=== PATIENT | male | born 2000 | race Hispanic/Latino ===

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

== ENCOUNTER 2023-03-02 04:20 | Emergency (ER) | payer OTHER ==
[~2023-03-02] VITALS: Ht 167.6 cm; Wt 71.7 kg
[2023-03-02] MEDS ORDERED: DIPH,PERTUSS(ACELL),TET VAC/PF 0.5 ML VIAL IM ONE (05:00)
[2023-03-02 05:19] LABS: BASOPHILS % (AUTO) 0.3 % (0.0-5.0); EOSINOPHILS % (AUTO) 1.2 % (0.0-8.0); HEMATOCRIT 45.7 % (42-54); LYMPHOCYTES % (AUTO) 17.8 % (21.0-51.0); MEAN CORPUSCULAR HEMOGLOBIN 28.1 pg (27.0-33.0); MEAN CORPUSCULAR HGB CONC 32.4 g/dL (32.0-36.0); MEAN CORPUSCULAR VOLUME 86.9 fL (79-99); MONOCYTES % (AUTO) 5.9 % (3.0-13.0); PLATELET COUNT (AUTO) 267 K/uL (130-400); RED BLOOD CELL COUNT(AUTO) 5.26 MIL/uL (4.50-6.20); RED CELL DISTRIBUTION WIDTH 12.9 % (11.0-15.5); WHITE BLOOD COUNT (AUTO) 9.7 K/uL (4.8-10.8)
[2023-03-02 05:20] LABS: POTASSIUM 3.7 mmol/L (3.5-5.1)
[2023-03-02 05:24] LABS: ALBUMIN 3.9 g/dL (3.5-5.0); TOTAL PROTEIN, SERUM 6.7 g/dL (6.0-8.3)
[2023-03-02 05:26] LABS: INR 0.93 (0.85-1.15); PROTHROMBIN TIME 9.4 SEC (9.6-11.6)
[2023-03-02 05:27] LABS: PARTIAL THROMBOPLASTIN TIME 22.3 SEC (26.3-35.5)
[2023-03-02 05:32] LABS: APPEARANCE,URINE CLEAR (CLEAR); BILIRUBIN,URINE NEGATIVE (NEGATIVE); COLOR,URINE YELLOW (YELLOW); GLUCOSE, URINE (UA) NEGATIVE (NEGATIVE); KETONES,URINE 5 mg/dL (NEGATIVE); LEUKOCYTE ESTERASE ,URINE NEGATIVE Leu/uL (NEGATIVE); NITRATE,URINE NEGATIVE (NEGATIVE); OCCULT BLOOD,URINE NEGATIVE (NEGATIVE); PROTEIN,URINE NEGATIVE (NEGATIVE); UROBILINOGEN,URINE 0.2 mg/dL (0.2-1.0)
[2023-03-02 05:46] LABS: BACTERIA,URINE None Seen /HPF (None Seen); RBC,URINE None Seen /HPF (0-1); SQUAMOUS EPITHELIAL CELL,UR Few /HPF (0-2); WBC,URINE 0-1 /HPF (0-1)
[2023-03-02 05:49] VITALS: BP 131/64
[2023-03-02] MEDS ORDERED: CEFAZOLIN SODIUM 2 GM VIAL IVPB STA (05:55)
[2023-03-02] MEDS ORDERED: IBUPROFEN 400 MG TABLET PO ONE (06:00)
[2023-03-02] MEDS ORDERED: IBUPROFEN 800 MG TAB PO ONE (06:00)
== END 2023-03-02 08:15 | disposition critical access hospital (66) ==
LOC: EDH 04:20
DX: S02.32XA Fracture of orbital floor, left side, initial encounter for closed fracture (principal); S00.11XA Contusion of right eyelid and periocular area, initial encounter; Z20.822 Contact with and (suspected) exposure to COVID-19; W13.9XXA Fall from, out of or through building, not otherwise specified, initial encounter; Y93.89 Activity, other specified; Y92.89 Other specified places as the place of occurrence of the external cause; Y99.8 Other external cause status
CPT/HCPCS: 99285; 70450; 96365; 71045; 87635; 80053; 85025; 85610; 85730; 81001; 36415; 90715; 72125; 70486; 90471; J0690

== ENCOUNTER 2023-08-24 16:51 | Emergency (ER) | payer OTHER ==
[~2023-08-24] VITALS: Ht 162.6 cm; Wt 72.6 kg
[2023-08-24 16:55] VITALS: BP 138/77; PULSE 75; RESP 16; O2SAT 97
[2023-08-24] MEDS ORDERED: 0.9%NACL 1000ML 1,000 ML IV ONE (20:00)
[2023-08-24] MEDS ORDERED: CEFAZOLIN SODIUM 2 GM VIAL IVPB ONE (20:00)
[2023-08-24] MEDS ORDERED: KETOROLAC 30MG VIAL (30MG/ML) IM ONE (20:00)
[2023-08-24 20:34] LABS: BASOPHILS # (AUTO) 0.03 K/uL (0.00-0.20); BASOPHILS % (AUTO) 0.3 % (0.0-5.0); EOSINOPHILS # (AUTO) 0.17 K/uL (0.00-0.70); EOSINOPHILS % (AUTO) 1.9 % (0.0-8.0); HEMATOCRIT 45.6 % (42-54); IMMATURE GRANULOCYTE ABSOLUTE 0.02 K/uL (0-1); LYMPHOCYTES # (AUTO) 1.7 K/uL (1.0-4.8); LYMPHOCYTES % (AUTO) 18.7 % (21.0-51.0); MEAN CORPUSCULAR HEMOGLOBIN 28.8 pg (27.0-33.0); MEAN CORPUSCULAR HGB CONC 33.3 g/dL (32.0-36.0); MEAN CORPUSCULAR VOLUME 86.4 fL (79-99); MONOCYTES # (AUTO) 0.8 K/uL (0.1-1.0); MONOCYTES % (AUTO) 8.9 % (3.0-13.0); NEUTROPHILS # (AUTO) 6.4 K/uL (1.8-7.7); PLATELET COUNT (AUTO) 277 K/uL (130-400); RED BLOOD CELL COUNT(AUTO) 5.28 MIL/uL (4.50-6.20); RED CELL DISTRIBUTION WIDTH 12.7 % (11.0-15.5); WHITE BLOOD COUNT (AUTO) 9.2 K/uL (4.8-10.8)
[2023-08-24 20:43] LABS: CREATININE 0.9 mg/dL (0.5-1.5); POTASSIUM 3.8 mmol/L (3.5-5.1)
[2023-08-24 21:39] LABS: ERYTHROCYTE SEDIMENTATION RATE 5 MM/HR (0-15)
[2023-08-24] MEDS ORDERED: MUPI15CR12 TP (22:44)
[2023-08-24] MEDS ORDERED: CEPH500T PO (22:44)
[2023-08-24] MEDS ORDERED: IBUP-2070 PO (22:45)
== END 2023-08-24 23:12 | disposition home or self-care (01) ==
LOC: EDH 16:51
DX: S50.312A Abrasion of left elbow, initial encounter (principal); L03.114 Cellulitis of left upper limb; W01.0XXA Fall on same level from slipping, tripping and stumbling without subsequent striking against object, initial encounter; Y93.89 Activity, other specified; Y92.89 Other specified places as the place of occurrence of the external cause; Y99.8 Other external cause status
CPT/HCPCS: 99285; 96374; 73200; 73070; 80048; 85025; 85651; 36415; 96372; J1885; J0690

== ENCOUNTER 2025-02-07 22:31 | Emergency (ER) | payer SELFPAY ==
[~2025-02-07] VITALS: Ht 160 cm; Wt 77.1 kg
[~2025-02-07 22:31] MED LIST: CEPH500T PO; IBUP-2070 PO; MUPI15CR12 TP
--- NOTE | 2025-02-08 00:17 | HMCIMG ---
ANKLE COMP 3VWS LT HISTORY: Fracture COMPARISON: None TECHNIQUE: 3 images of the left ankle were obtained. FINDINGS: There is no acute displaced fracture or dislocation. IMPRESSION: 1. Findings as described above.
[2025-02-08 00:38] VITALS: BP 128/82; PULSE 104; RESP 18; TEMP 98; O2SAT 98
--- NOTE | 2025-02-08 00:38 | NUR ---
PATIENT BROUGHT TO [facility]; CARE ASSUMED AT THIS TIME.
[2025-02-08] MEDS: HYDROcodone/APAP 5/325 1 TAB TABLET PO ONE (00:43)
[2025-02-08] MEDS ORDERED: KETO10TA2 PO (01:18)
--- NOTE | 2025-02-08 01:19 | ERN ---
General Chief Complaint: Ankle Problem Stated Complaint: C/O PAIN TO LEFT ANKLE Time Seen by MD: 22:37 Time Seen by Midlevel: 22:37 Source: patient History of Present Illness Initial Comments Patient is a 24-year-old male presenting to the ER for evaluation of left ankle pain after he rolled it while playing volleyball. Denies any other injuries Allergies: Coded Allergies: No Known Allergies (Unverified Allergy, Unknown, 03/02/23) Home Meds Active Scripts Ibuprofen (Ibuprofen) 600 Mg Tablet, 600 MG PO q8 hours PRN for PAIN, #15 TAB 0 Refills Prov:NACHO BURDICK NP 08/24/23 Mupirocin Calcium (Mupirocin) 2 % Cream..g., 15 GM TP BID, #30 G 0 Refills Prov:NACHO BURDICK NP 08/24/23 Cephalexin (Cephalexin) 500 Mg Tablet, 500 MG PO TID for 7 Days, #21 TAB 0 Refills Prov:NACHO BURDICK NP 08/24/23 Past Medical History Past Medical History: No Pertinent History Past Surgical History: None Family History Family History: HTN Social History Social History: ETOH, Lives with family ROS Dictation CONSTITUTIONAL: Negative except for HPI HEAD/FACE: Negative except for HPI EENT: Negative except for HPI RESPIRATORY: Negative except for HPI GASTROINTESTINAL/ABDOMINAL: Negative except for HPI GENITOURINARY: Negative except for HPI MUSCULOSKELETAL: Negative except for HPI INTEGUMENTARY: Negative except for HPI NEUROLOGICAL/PSYCH: Negative except for HPI HEMATOLOGIC/LYMPHATIC: Negative except for HPI All Systems Negative, Except as noted above. 13 point review of systems assessed and all negative except for above. Physical Exam Physical Exam Dictation Vital Signs reviewed General Appearance: Alert, oriented x 3, no acute distress, well developed, nourished. Head and Face: non-traumatic. Eyes: PERRL, pink conjunctivas, eyelid no trauma, anterior chamber with arcus senilis. Ears: Pinnas intact and no signs of trauma or erythema ear canals clear and no discharge TM no erythema Nose: No discharge, no bleeding. Oropharynx: Mouth normal, tongue pink, pharynx clear,no erythema, tonsils no exudates, no abscesses noted, mucous membrane moist Neck: Supple, non-tender, no thyromegaly, no masses, no JVD, no bruits Breast:Deferred Chest:No tenderness, no crepitus, no paradoxical movement, no retractions Lungs:Clear, well-ventilated, symmetric, no rales, no wheezing, no rhonchi, no stridor, good breath sounds bilaterally Heart: Regular rate, regular rhythm, no murmur, no gallops Vascular: no peripheral edema, Abdomen: Soft, positive bowel sounds, nondistended, no guarding, nontender, no rebound, no masses no hepatomegaly, no splenomegaly, no Olivares's sign, no hernias. Rectal: Deferred Genital: Deferred Neurological: Normal speech, motor function intact, sensory function intact Musculoskeletal: Neck nontender, full range of motion, back nontender, full range of motion, Extremities: Swelling and tenderness to the left lateral malleolus Skin: Color pink, dry, no turgor, no rash, no lacerations, no abrasions, no contusions. Lymphatic: Deferred MDM MDM: Differential diagnosis: Fracture, dislocation, contusion There are no social concerns with this patient. Prescription drug management Prescriptions will include: Toradol Medical management and examination interpretation discussions were had by me with other qualified healthcare professionals as indicated for the patient's care. ED Course Orders Procedure Category Date Status Time Ankle Comp 3vws Lt RAD 02/07/25 Resulted 22:39 Foot Comp 3+Vws Lt RAD 02/08/25 Taken 00:23 Hydrocodone/Apap PHA 02/08/25 Complete 5/325 ([place] 5/325mg) 00:30 Apply Mukul Wrap (Er) CPOE 02/08/25 Transmitted 01:02 Crutches W/Training CPOE 02/08/25 Transmitted (Er) 01:02 Current Medications Medications (Trade) Dose Ordered Sig/Sabrina Route PRN Reason Start Time Stop Time Status Last Admin Dose Admin Acetaminophen/ Hydrocodone Bitart (NORco 5/325MG) 1 tab ONCE ONCE PO 02/08/25 00:30 02/08/25 00:31 DC 02/08/25 00:43 Vital Signs Date Time Temp Pulse Resp B/P (MAP) Pulse Ox O2 Delivery O2 Flow Rate FiO2 02/08/25 00:38 98.1 104 18 128/82 98 Room Air* 0 21 02/07/25 22:32 98.1 107 20 137/85 96 Room Air [place] [address] [address] IMAGING REPORT Signed PATIENT: ROMEL ALLEN MR#: [id number] : 2000 SEX: M AGE: 24 LOCATION: [facility] ORDER 39 STATUS: REG ER REPORT#: [id number] SERVICE 38 REASON: r/o fracture ORDERING PHYSICIAN: SOFÍA ALLEN PROCEDURE: [id number] - ANKLE COMP 3VWS LT ANKLE COMP 3VWS LT HISTORY: Fracture COMPARISON: None TECHNIQUE: 3 images of the left ankle were obtained. FINDINGS: There is no acute displaced fracture or dislocation. IMPRESSION: 1. Findings as described above. DICTATED BY: ROSA MARIA DANGELO MD DATE: 02/08/2513 ELECTRONICALLY SIGNED BY: ROSA MARIA DANGELO MD DATE: 02/08/2516 DX & DISP Disposition: Discharge Departure Impression: Primary Impression: Left ankle sprain Condition: Stable Scripts Ketorolac Tromethamine (Ketorolac Tromethamine) 10 Mg Tablet 1 TAB PO TID for pain for 5 Days, #15 TAB 0 Refills Prov: SOFÍA ALLEN 02/08/25 Additional Instructions: Your left foot/ankle x-ray does not show any evidence of an acute fracture or dislocation. I have given you a prescription for Toradol which should help improve your pain over the next couple of days. Referrals: SELF,REFERRAL (PCP) I have reviewed the case, and I agree with, Diagnosis and Plan I performed the substantive portion of the visit. I have reviewed and personally made and approve the management plan that is documented in the note by myself or the GIACOMO. I acknowledge for responsibility for the patient's management plan. SOFÍA ALLEN Feb 08, 2025 01:19
--- NOTE | 2025-02-08 01:21 | NUR ---
ROSALBA WRAP APPLIED TO L ANKLE/FOOT, CRUTCHES PROVIDED. TOLERATED WELL
--- NOTE | 2025-02-08 08:06 | HMCIMG ---
FOOT COMP 3+VWS LT HISTORY: Fracture COMPARISON: None TECHNIQUE: 3 images of left foot were obtained. FINDINGS: There is no acute displaced fracture or dislocation. IMPRESSION: 1. Findings as described above.
== END 2025-02-08 01:36 | disposition home or self-care (01) ==
LOC: EDH 22:31
DX: S93.402A Sprain of unspecified ligament of left ankle, initial encounter (principal); X50.1XXA Overexertion from prolonged static or awkward postures, initial encounter; Y93.68 Activity, volleyball (beach) (court); Y92.89 Other specified places as the place of occurrence of the external cause; Y99.8 Other external cause status
CPT/HCPCS: 73610; 73630; 99283; 99284

== ENCOUNTER 2025-07-14 02:52 | Emergency (ER) | payer SELFPAY ==
[~2025-07-14] VITALS: Ht 160 cm; Wt 77.1 kg
[~2025-07-14 02:52] MED LIST changes: +IBUP-1492 PO; -IBUP-2070 PO; +KETO10TA2 PO
[2025-07-14 02:55] VITALS: TEMP 97.5
[2025-07-14 03:25] LABS: IMMATURE GRANULOCYTE ABSOLUTE 0.01 K/uL (0-1); NUCLEATED RED BLOOD CELLS 0.0 % (0.0-0.19); PLATELET COUNT (AUTO) 252 K/uL (130-400); RED BLOOD CELL COUNT(AUTO) 4.66 MIL/uL (4.50-6.20); RED CELL DISTRIBUTION WIDTH 13.1 % (11.0-15.5); WHITE BLOOD COUNT (AUTO) 9.0 K/uL (4.8-10.8)
--- NOTE | 2025-07-14 03:25 | ERN ---
General Chief Complaint: Multiple Complaints Stated Complaint: RECTAL BLEEDING, ABD PAIN Time Seen by MD: 02:58 Source: patient History of Present Illness Initial Comments 24-year-old male, healthy, who has had history of what he thinks are hemorrhoids for at least a year causing bright red blood to come out of his rectum when he defecates. Sometimes all he defecates is blood with no stool. Other times he feels like he leaks blood into his underwear. He states he does not feel any hemorrhoids coming out. He wonders if it is inherited as his brother is also experiencing hemorrhoidal bleeding. He does not have easy bruising or other signs of a coagulopathy. He does drink alcohol on weekends but states he does not drink like that. All by also he states that he has subxiphoid epigastric pain that is stabbing and intermittent. That is relatively new. Allergies: Coded Allergies: No Known Allergies (Unverified Allergy, Unknown, 03/02/23) Home Meds Active Scripts Ketorolac Tromethamine (Ketorolac Tromethamine) 10 Mg Tablet, 1 TAB PO TID for pain for 5 Days, #15 TAB 0 Refills Prov:SOFÍA ALLEN 02/08/25 Ibuprofen (Ibuprofen) 600 Mg Tablet, 600 MG PO q8 hours PRN for PAIN, #15 TAB 0 Refills Prov:NACHO BURDICK NP 08/24/23 Mupirocin Calcium (Mupirocin) 2 % Cream..g., 15 GM TP BID, #30 G 0 Refills Prov:NACHO BURDICK NP 08/24/23 Cephalexin (Cephalexin) 500 Mg Tablet, 500 MG PO TID for 7 Days, #21 TAB 0 Refills Prov:NACHO BURDICK NP 08/24/23 Past Medical History Past Medical History: No Pertinent History Past Surgical History: None Family History Family History: HTN Social History Social History: ETOH, Lives with family Constitutional: (-) chills, (-) diaphoresis, (-) fever, (-) malaise, (-) weakness, (-) other documentation EENTM: (-) eye pain, (-) blurred vision, (-) tearing, (-) double vision, (-) ear pain, (-) ear discharge, (-) nose pain, (-) nose congestion, (-) throat pain, (-) Throat swelling, (-) mouth pain, (-) tooth pain, (-) mouth swelling, (-) other documentation Respiratory: (-) cough, (-) orthopnea, (-) short of breath, (-) stridor, (-) wheezing, (-) other documentation Cardiovascular: (-) chest pain, (-) edema, (-) palpitations, (-) syncope, (-) dyspnea on exertion, (-) other documentation Gastrointestinal/Abdominal: (+) nausea, (+) diarrhea, (+) abdominal pain Genitourinary: (-) penile discharge, (-) dysuria, (-) frequency, (-) hematuria, (-) pain, (-) other documentation Musculoskeletal: (-) Neck pain, (-) back pain, (-) Flank Pain, (-) joint pain, (-) joint swelling, (-) muscle pain, (-) muscle stiffness, (-) gout, (-) other documentation Skin: (-) laceration, (-) contusion, (-) abrasion, (-) abscess, (-) rash, (-) change in color, (-) change in hair, (-) change in nails, (-) diaphoresis, (-) dryness, (-) other documentation Physical Exam General Appearance: (+) no apparent distress Orientation: (+) alert, (+) oriented x 3 Head/Face Trauma: No Eye: bilateral eye normal inspection, bilateral eye PERRL, bilateral eye EOMI Ear, Nose, Throat: (+) hearing grossly normal, (+) normal ENT inspection Neck: (+) normal inspection, (+) supple, (+) full range of motion, (+) no JVD Respiratory: (+) chest non-tender, (+) lungs clear, (+) well ventilated Heart: (+) regular, (+) no gallop Vascular: (+) no edema, (+) normal peripheral pulse Gastrointestinal: (+) soft, (+) non-tender, (+) bowel sound present Rectal: (+) normal exam Rectal Comment It has no external hemorrhoids, no anal fissures. Results Laboratory and Microbiology Lab and Micro Result Laboratory Tests Test 07/14/25 03:05 White Blood Count 9.0 K/uL (4.8-10.8) Red Blood Count 4.66 MIL/uL (4.50-6.20) Hemoglobin 13.3 g/dL (14.0-18.0) L Hematocrit 40.1 % (42-54) L Mean Corpuscular Volume 86.1 fL (79-99) Mean Corpuscular Hemoglobin 28.5 pg (27.0-33.0) Mean Corpuscular Hemoglobin Concent 33.2 g/dL (32.0-36.0) Red Cell Distribution Width 13.1 % (11.0-15.5) Platelet Count 252 K/uL (130-400) Mean Platelet Volume 10.9 fL (7.5-10.5) H Immature Granulocyte % (Auto) 0.1 % (0-1) Neutrophils (%) (Auto) 66.4 % (40.0-77.0) Lymphocytes (%) (Auto) 25.2 % (21.0-51.0) Monocytes (%) (Auto) 6.0 % (3.0-13.0) Eosinophils (%) (Auto) 1.6 % (0.0-8.0) Basophils (%) (Auto) 0.7 % (0.0-5.0) Neutrophils # (Auto) 6.0 K/uL (1.8-7.7) Lymphocytes # (Auto) 2.3 K/uL (1.0-4.8) Monocytes # (Auto) 0.5 K/uL (0.1-1.0) Eosinophils # (Auto) 0.14 K/uL (0.00-0.70) Basophils # (Auto) 0.06 K/uL (0.00-0.20) Absolute Immature Granulocyte (auto 0.01 K/uL (0-1) Nucleated Red Blood Cells 0.0 % (0.0-0.19) Prothrombin Time 10.5 SEC (9.6-11.6) Prothromb Time International Ratio 0.99 (0.85-1.15) Activated Partial Thromboplast Time 25.4 SEC (26.3-35.5) L Sodium Level 144 mmol/L (136-145) Potassium Level 3.4 mmol/L (3.5-5.1) L Chloride Level 108 mmol/L (101-111) Carbon Dioxide Level 24 mmol/L (21-32) Blood Urea Nitrogen 10 mg/dL (7-18) Creatinine 1.1 mg/dL (0.5-1.3) Glomerular Filtration Rate Calc 95 mL/min (>90) Random Glucose 103 mg/dL (70-105) Total Calcium 8.7 mg/dL (8.5-10.1) Total Bilirubin 0.4 mg/dL (0.2-1.0) Direct Bilirubin 0.1 mg/dL (0.0-0.3) Aspartate Amino Transf (AST/SGOT) 31 U/L (10-37) Alanine Aminotransferase (ALT/SGPT) 63 U/L (12-78) Alkaline Phosphatase 74 U/L (50-136) Total Protein 7.2 g/dL (6.0-8.3) Albumin 4.0 g/dL (3.5-5.0) Lipase 20 U/L (16-77) MDM MDM: Differential diagnosis: Hemorrhoids, AVMs, diverticulosis, coagulopathy, liver disease, upper GI bleeding. Rationale: Tests considered and ordered secondary to shared decision making include: Previous outside records reviewed: Old ER visits. Risk of complication and/or morbidity or mortality of patient management: None Medications-Per medication reconciliation Need for hospitalization: Patient does meet criteria for hospitalization. Need for emergency major/minor surgery: No There are no social concerns with this patient. Prescription drug management Prescriptions will include symptomatic care Patient's prior external medical records from other ER visits were reviewed by me as indicated. Prior testing and results from previous visits were reviewed. Prior tests were taken into account with medical decision making and resource utilization, independent historian/historians were used to obtain complete medical history. I independently interpreted the test that were performed, results were reviewed by me and considered findings on radiology if ordered. Laboratory chemistry analysis is normal except for a mild hypokalemia. Patient's CBC shows only a mild anemia. Patient's chemistry panel and liver function tests are normal. Coags are also normal. The next step in evaluating a young patient with bright red blood per rectum is colonoscopy or EGD. A CT scan would probably not be very helpful it this stage. ED Course Orders Procedure Category Date Status Time Cbc With Differential LAB 07/14/25 Complete 02:56 Pt And Ptt LAB 07/14/25 Complete 02:56 Type And Screen BBK 07/14/25 Complete 02:56 Hepatic Function Panel LAB 07/14/25 Complete 02:58 Lipase LAB 07/14/25 Complete 02:58 Basic Metabolic Panel LAB 07/14/25 Complete 02:58 Lidocaine Hcl 2% PHA 07/14/25 Complete Viscous (Lidocaine Hcl 03:30 Mag/Alum/Simeth 30ml PHA 07/14/25 Complete (Maalox Plus 30ml) 03:30 Dicyclomine Hcl PHA 07/14/25 Complete (Bentyl 10mg/5ml 03:30 Current Medications Medications (Trade) Dose Ordered Sig/Sabrina Route PRN Reason Start Time Stop Time Status Last Admin Dose Admin Al Hydroxide/Mg Hydroxide (MAALox PLUS 30ML) 30 ml ONCE ONCE PO 07/14/25 03:30 07/14/25 03:34 DC 07/14/25 03:53 Dicyclomine HCl (Bentyl 10mg/5ml Syrup) 10 mg ONCE ONCE PO 07/14/25 03:30 07/14/25 03:34 DC 07/14/25 03:53 Lidocaine HCl (Lidocaine HCl 2% Viscous) 10 ml ONCE ONCE PO 07/14/25 03:30 07/14/25 03:34 DC 07/14/25 03:53 Vital Signs Date Time Temp Pulse Resp B/P (MAP) Pulse Ox O2 Delivery O2 Flow Rate FiO2 07/14/25 04:00 71 18 119/74 98 Room Air* 0 21 07/14/25 02:55 97.5 76 20 137/74 96 Room Air DX & DISP Disposition: Discharge Departure Impression: Primary Impression: Rectal bleeding Condition: Stable Additional Instructions: You need to establish a primary care physician who can refer you to a goring cutter so that you can get a colonoscopy to figure out the source of your bleeding. It could be as simple as the hemorrhoids that you describe or it could be an arterial venous malformation or a diverticula that is bleeding. These conditions are all best diagnosed with colonoscopy. There are free clinics in the [facility] that you can find simply by looking online with with the search term free clinics in [place]. To clinics we have seen online are either the [facility] or [facility]. Currently the number of red blood cells that you have in her bloodstream are quite high and you are not in danger of having to few red blood cells in your blood stream. If you feel dizzy lightheaded very low on energy or pass out it maybe because of anemia or low red blood cells. In that case please return to the emergency room. Referrals: SELF,REFERRAL (PCP) RAIZA BRAVO MD Jul 14, 2025 03:25
[2025-07-14 03:35] LABS: INR 0.99 (0.85-1.15)
[2025-07-14 03:38] LABS: CREATININE 1.1 mg/dL (0.5-1.3); GLOMERULAR FILTR. RATE CALC 95.0 mL/min (>90); GLUCOSE,RANDOM 103.0 mg/dL (70-105); SODIUM SERUM 144.0 mmol/L (136-145); UREA NITROGEN, BLOOD 10.0 mg/dL (7-18)
[2025-07-14 03:42] LABS: ASPARTATE AMINOTRANSFERASE 31.0 U/L (10-37); TOTAL PROTEIN, SERUM 7.2 g/dL (6.0-8.3)
[2025-07-14] MEDS: DICYCLOMINE HCL 10 MG/5 ML ML PO ONE (03:53)
[2025-07-14] MEDS: MAG/ALUM/SIMETH 30 ML UDCUP PO ONE (03:53)
[2025-07-14] MEDS: LIDOCAINE HCL 2% VISCOUS 15 ML UDCUP PO ONE (03:53)
[2025-07-14 04:00] VITALS: BP 119/74; PULSE 71; RESP 18; O2SAT 98
== END 2025-07-14 04:34 | disposition home or self-care (01) ==
LOC: EDH 02:52
DX: K62.5 Hemorrhage of anus and rectum (principal); Z87.19 Personal history of other diseases of the digestive system
CPT/HCPCS: 36415; 80048; 80076; 83690; 85025; 85610; 85730; 86850; 86900; 86901; 99283; 99284